=== PATIENT | male | born 1950 | race Caucasian/White ===

== ENCOUNTER 2016-11-05 15:23 | Inpatient (IN) | payer MEDICARE, BC ==
[~2016-11-05 15:23] MED LIST: ACID CONTROL150 MG PO; ASPIRIN81 MG PO; DILTIAZEM HCL120 MG PO; HYDROCHLOROTHIA25 MG PO; KLONOPIN TAB 00.5 MG PO; LEVEMIR100 UNIT/1 SQ; LIPITOR TAB 2020 MG PO; LISINOPRIL40 MG PO; LORCET PLUS 7.1 EACH PO; NEURONTIN 400400 MG PO; NOVOLOG 10100 UNITS1 SQ; PROTONIX 40 MG40 M1 PO; SENOKOT-S TABL1 EACH PO; VITAMIN D1000 UNI1 PO; XARELTO10 MG PO
[2016-11-05 16:46] LABS: HEMOGLOBIN 9.1 gm/dl (14.0-17.5); RED BLOOD COUNT 3.05 M/UL (4.20-5.50); WHITE BLOOD COUNT 6.7 K/UL (4.5-11.0)
[2016-11-06] MEDS ORDERED: LANTUS100 UNIT/1 SC (01:13)
[2016-11-06] MEDS ORDERED: PROVENTIL HFA 61 INH INH (01:14)
[2016-11-06] MEDS ORDERED: PROZAC20 MG PO (01:15)
[2016-11-06] MEDS ORDERED: ZITHROMAX250 MG PO (01:15)
[2016-11-06] MEDS ORDERED: IMDUR ER TAB 6060 MG PO (01:16)
[2016-11-06] MEDS ORDERED: OXYCODONE HCL10 MG PO (01:16)
[2016-11-06] MEDS ORDERED: HYDROCHLOROTHIA25 MG PO (01:16)
[2016-11-06] MEDS ORDERED: FLOMAX 0.4 MG0.4 MG PO (01:17)
[2016-11-06] MEDS ORDERED: INCRUSE ELLI62.5 MCG INH (01:21)
[2016-11-06 06:52] LABS: HEMOGLOBIN 8.4 gm/dl (14.0-17.5); RED BLOOD COUNT 2.87 M/UL (4.20-5.50); WHITE BLOOD COUNT 6.7 K/UL (4.5-11.0)
[2016-11-07 05:10] LABS: HEMOGLOBIN 7.9 gm/dl (14.0-17.5); RED BLOOD COUNT 2.68 M/UL (4.20-5.50)
[2016-11-07 05:13] LABS: WHITE BLOOD COUNT 9.5 K/UL (4.5-11.0)
[2016-11-08 05:42] LABS: HEMOGLOBIN 8.8 gm/dl (14.0-17.5); RED BLOOD COUNT 2.94 M/UL (4.20-5.50); WHITE BLOOD COUNT 10.8 K/UL (4.5-11.0)
[2016-11-09] MEDS ORDERED: CATAPRES 0.1MG0.1 MG PO (16:58)
[2016-11-09] MEDS ORDERED: LEVAQUIN750 MG PO (17:03)
[2016-11-09] MEDS ORDERED: HYDRALAZINE HCL50 MG PO (17:04)
[2016-11-09] MEDS ORDERED: IMDUR ER TAB 6060 MG PO (17:08)
[2016-11-09] MEDS ORDERED: LANTUS SOL100 UNIT/1 SQ (17:12)
[2016-11-09] MEDS ORDERED: NOVOLOG 10100 UNITS1 SQ (17:13)
[2017-03-16] MEDS ORDERED: CATAPRES 0.1MG0.1 MG PO (18:33)
[2017-03-16] MEDS ORDERED: GLUCERNA237 ML PO (18:35)
[2017-03-16] MEDS ORDERED: ARICEPT10 MG PO (18:36)
[2017-03-16] MEDS ORDERED: GLUCERNA/RESOURC1 EA PO (18:51)
[2017-03-16] MEDS ORDERED: LABETALOL HCL300 MG PO (18:53)
[2017-03-16] MEDS ORDERED: MELATONIN5 M2 PO (18:55)
[2017-04-02] MEDS ORDERED: LASIX40 MG PO (10:57)
[2017-04-02] MEDS ORDERED: PROVENTIL HFA 61 INH INH (10:57)
[2017-04-02] MEDS ORDERED: NIFEREX 150 MG150 MG PO (11:00)
[2017-04-02] MEDS ORDERED: COREG 3.125M3.125 MG PO (11:02)
== END 2016-11-09 17:49 | disposition home or self-care (01) | DRG 193 ==
LOC: ER1 15:23 → M/S 19:02 → ZEROF 19:02 → M/S 21:40
PROVIDERS: Emergency Medicine; Family Medicine; ADMIT Internal Medicine
DX: J18.9 Pneumonia, unspecified organism (principal); G93.49 Other encephalopathy; I12.9 Hypertensive chronic kidney disease with stage 1 through stage 4 chronic kidney disease, or unspecified chronic kidney disease; N18.3 Chronic kidney disease, stage 3 (moderate); I25.10 Atherosclerotic heart disease of native coronary artery without angina pectoris; D69.6 Thrombocytopenia, unspecified; J60 Coalworker's pneumoconiosis; E78.5 Hyperlipidemia, unspecified; F17.210 Nicotine dependence, cigarettes, uncomplicated; E86.0 Dehydration; R53.81 Other malaise; I15.0 Renovascular hypertension; M16.4 Bilateral post-traumatic osteoarthritis of hip; R00.1 Bradycardia, unspecified; Z95.5 Presence of coronary angioplasty implant and graft; Z86.73 Personal history of transient ischemic attack (TIA), and cerebral infarction without residual deficits; Z79.82 Long term (current) use of aspirin; Z79.4 Long term (current) use of insulin; Z79.899 Other long term (current) drug therapy
CPT/HCPCS: 36415; 36600; 51701; 70450; 71010; 80048; 80053; 80307; 81001; 82550; 82553; 82803; 82962; 83036; 83874; 84484; 85025; 85027; 87040; 87070; 87205; 93005; 94640; 94664; 96365; 96375; 97116; 97530; 99285; J0360; J1644; J1956; J2405; J2930; J7030

== ENCOUNTER 2016-11-26 17:59 | Emergency (ER) | payer MEDICARE, BC ==
[~2016-11-26 17:59] MED LIST changes: +CATAPRES 0.1MG0.1 MG PO; +FLOMAX 0.4 MG0.4 MG PO; +HYDRALAZINE HCL50 MG PO; +IMDUR ER TAB 6060 MG PO; +INCRUSE ELLI62.5 MCG INH; +LANTUS SOL100 UNIT/1 SQ; +LANTUS100 UNIT/1 SC; +LEVAQUIN750 MG PO; +OXYCODONE HCL10 MG PO; +PROVENTIL HFA 61 INH INH; +PROZAC20 MG PO; +ZITHROMAX250 MG PO
[2016-11-26 22:28] LABS: HEMOGLOBIN 8.7 gm/dl (14.0-17.5); RED BLOOD COUNT 2.92 M/UL (4.20-5.50); WHITE BLOOD COUNT 15.7 K/UL (4.5-11.0)
[2017-03-16] MEDS ORDERED: CATAPRES 0.1MG0.1 MG PO (18:33)
[2017-03-16] MEDS ORDERED: GLUCERNA237 ML PO (18:35)
[2017-03-16] MEDS ORDERED: ARICEPT10 MG PO (18:36)
[2017-03-16] MEDS ORDERED: GLUCERNA/RESOURC1 EA PO (18:51)
[2017-03-16] MEDS ORDERED: LABETALOL HCL300 MG PO (18:53)
[2017-03-16] MEDS ORDERED: MELATONIN5 M2 PO (18:55)
[2017-04-02] MEDS ORDERED: PROVENTIL HFA 61 INH INH (10:57)
[2017-04-02] MEDS ORDERED: LASIX40 MG PO (10:57)
[2017-04-02] MEDS ORDERED: NIFEREX 150 MG150 MG PO (11:00)
[2017-04-02] MEDS ORDERED: COREG 3.125M3.125 MG PO (11:02)
== END 2016-11-27 02:40 | disposition home or self-care (01) ==
LOC: ER1 17:59
PROVIDERS: Emergency Medicine
DX: J18.9 Pneumonia, unspecified organism (principal); I13.0 Hypertensive heart and chronic kidney disease with heart failure and stage 1 through stage 4 chronic kidney disease, or unspecified chronic kidney disease; I50.9 Heart failure, unspecified; N18.9 Chronic kidney disease, unspecified; D64.9 Anemia, unspecified; D72.829 Elevated white blood cell count, unspecified; F17.200 Nicotine dependence, unspecified, uncomplicated; Z95.5 Presence of coronary angioplasty implant and graft; Z79.899 Other long term (current) drug therapy
CPT/HCPCS: 36415; 70450; 71010; 80053; 82272; 82550; 82553; 83735; 83874; 84484; 85025; 87040; 87081; 87880; 93005; 94664; 96365; 96366; 99284; J1956

== ENCOUNTER 2016-12-22 15:22 | Observation (INO) | payer MEDICARE, BC ==
[~2016-12-22] VITALS: Ht 182.9 cm; Wt 72.6 kg
[2016-12-22 15:54] LABS: HEMOGLOBIN 8.3 gm/dl (14.0-17.5); RED BLOOD COUNT 2.82 M/UL (4.20-5.50); WHITE BLOOD COUNT 10.3 K/UL (4.5-11.0)
[2016-12-23 05:07] LABS: HEMOGLOBIN 8.1 gm/dl (14.0-17.5); RED BLOOD COUNT 2.74 M/UL (4.20-5.50); WHITE BLOOD COUNT 9.8 K/UL (4.5-11.0)
[2017-03-16] MEDS ORDERED: CATAPRES 0.1MG0.1 MG PO (18:33)
[2017-03-16] MEDS ORDERED: GLUCERNA237 ML PO (18:35)
[2017-03-16] MEDS ORDERED: ARICEPT10 MG PO (18:36)
[2017-03-16] MEDS ORDERED: GLUCERNA/RESOURC1 EA PO (18:51)
[2017-03-16] MEDS ORDERED: LABETALOL HCL300 MG PO (18:53)
[2017-03-16] MEDS ORDERED: MELATONIN5 M2 PO (18:55)
[2017-04-02] MEDS ORDERED: PROVENTIL HFA 61 INH INH (10:57)
[2017-04-02] MEDS ORDERED: LASIX40 MG PO (10:57)
[2017-04-02] MEDS ORDERED: NIFEREX 150 MG150 MG PO (11:00)
[2017-04-02] MEDS ORDERED: COREG 3.125M3.125 MG PO (11:02)
== END 2016-12-23 14:58 | disposition other institution (70) ==
LOC: ER1 15:22 → MED SURG 4 23:00 → ZEROF 23:00 → MED SURG 4 12-23 01:20
PROVIDERS: Emergency Medicine; ADMIT Internal Medicine
DX: G93.40 Encephalopathy, unspecified (principal); E11.22 Type 2 diabetes mellitus with diabetic chronic kidney disease; E11.65 Type 2 diabetes mellitus with hyperglycemia; I12.9 Hypertensive chronic kidney disease with stage 1 through stage 4 chronic kidney disease, or unspecified chronic kidney disease; N18.3 Chronic kidney disease, stage 3 (moderate); N17.9 Acute kidney failure, unspecified; J60 Coalworker's pneumoconiosis; D50.0 Iron deficiency anemia secondary to blood loss (chronic); E87.6 Hypokalemia; F17.210 Nicotine dependence, cigarettes, uncomplicated; Z86.73 Personal history of transient ischemic attack (TIA), and cerebral infarction without residual deficits; Z79.82 Long term (current) use of aspirin; Z79.899 Other long term (current) drug therapy; Z90.2 Acquired absence of lung [part of]; Z98.890 Other specified postprocedural states
CPT/HCPCS: 36415; 70450; 71010; 72125; 80048; 80053; 80307; 81001; 82140; 82550; 82553; 82803; 82962; 83690; 83874; 83880; 84484; 85025; 85027; 85610; 85730; 87086; 93005; 94640; 96372; 96374; 96376; 99285; G0378; G0480; J1650; J1815; J1817; J2310; J7030

== ENCOUNTER 2017-01-14 18:17 | Inpatient (IN) | payer MEDICARE, BC ==
[~2017-01-14] VITALS: Ht 185.4 cm; Wt 75.8 kg
[2017-01-14 19:42] LABS: HEMOGLOBIN 8.5 gm/dl (14.0-17.5); RED BLOOD COUNT 2.9 M/UL (4.20-5.50); WHITE BLOOD COUNT 10.6 K/UL (4.5-11.0)
[2017-01-15 07:09] LABS: HEMOGLOBIN 8.5 gm/dl (14.0-17.5); RED BLOOD COUNT 2.9 M/UL (4.20-5.50)
[2017-01-15] MEDS ORDERED: COREG 3.125M3.125 MG PO (09:35)
[2017-01-15] MEDS ORDERED: SPIRIVA18 MCG INH (09:36)
[2017-01-16 02:05] LABS: HEMOGLOBIN 7.3 gm/dl (14.0-17.5); WHITE BLOOD COUNT 9.5 K/UL (4.5-11.0)
[2017-01-16 02:06] LABS: RED BLOOD COUNT 2.53 M/UL (4.20-5.50)
[2017-01-16 12:03] LABS: HEMOGLOBIN 7.3 gm/dl (14.0-17.5)
[2017-01-17 05:55] LABS: HEMOGLOBIN 8.6 gm/dl (14.0-17.5)
[2017-01-17 05:57] LABS: RED BLOOD COUNT 2.97 M/UL (4.20-5.50); WHITE BLOOD COUNT 21.2 K/UL (4.5-11.0)
[2017-01-18 05:06] LABS: HEMOGLOBIN 8.5 gm/dl (14.0-17.5); RED BLOOD COUNT 2.92 M/UL (4.20-5.50); WHITE BLOOD COUNT 17.3 K/UL (4.5-11.0)
[2017-01-19 04:40] LABS: HEMOGLOBIN 8.9 gm/dl (14.0-17.5); RED BLOOD COUNT 3.08 M/UL (4.20-5.50); WHITE BLOOD COUNT 16.3 K/UL (4.5-11.0)
[2017-01-20 06:25] LABS: RED BLOOD COUNT 3.06 M/UL (4.20-5.50); WHITE BLOOD COUNT 16.4 K/UL (4.5-11.0)
[2017-01-20 12:28] LABS: URINE CREATININE 91.3 mg/dL
[2017-01-22 06:53] LABS: RED BLOOD COUNT 3.08 M/UL (4.20-5.50); WHITE BLOOD COUNT 19.6 K/UL (4.5-11.0)
[2017-01-23 04:56] LABS: HEMOGLOBIN 9.4 gm/dl (14.0-17.5); RED BLOOD COUNT 3.13 M/UL (4.20-5.50); WHITE BLOOD COUNT 18.6 K/UL (4.5-11.0)
[2017-01-23] MEDS ORDERED: LEVEMIR100 UNIT/1 SQ (21:02)
[2017-01-23] MEDS ORDERED: LASIX40 MG PO (21:03)
[2017-01-23] MEDS ORDERED: CHRONULAC20 GM/30 M PO (21:03)
[2017-01-23] MEDS ORDERED: NOVOLOG 10100 UNITS1 SQ (21:07)
[2017-03-16] MEDS ORDERED: CATAPRES 0.1MG0.1 MG PO (18:33)
[2017-03-16] MEDS ORDERED: GLUCERNA237 ML PO (18:35)
[2017-03-16] MEDS ORDERED: ARICEPT10 MG PO (18:36)
[2017-03-16] MEDS ORDERED: GLUCERNA/RESOURC1 EA PO (18:51)
[2017-03-16] MEDS ORDERED: LABETALOL HCL300 MG PO (18:53)
[2017-03-16] MEDS ORDERED: MELATONIN5 M2 PO (18:55)
[2017-04-02] MEDS ORDERED: LASIX40 MG PO (10:57)
[2017-04-02] MEDS ORDERED: PROVENTIL HFA 61 INH INH (10:57)
[2017-04-02] MEDS ORDERED: NIFEREX 150 MG150 MG PO (11:00)
[2017-04-02] MEDS ORDERED: COREG 3.125M3.125 MG PO (11:02)
== END 2017-01-23 21:47 | disposition home or self-care (01) | DRG 291 ==
LOC: ER1 18:17 → MED SURG 4 01-15 → PROG CARE 01-15 → ZEROF 01-15 → PROG CARE 01-15 14:25 → MED SURG 4 01-18 13:29
PROVIDERS: Emergency Medicine; Internal Medicine; Internal Medicine Infectious Disease; Internal Medicine Nephrology; ADMIT Family Medicine
DX: I13.0 Hypertensive heart and chronic kidney disease with heart failure and stage 1 through stage 4 chronic kidney disease, or unspecified chronic kidney disease (principal); I50.33 Acute on chronic diastolic (congestive) heart failure; J96.21 Acute and chronic respiratory failure with hypoxia; N17.9 Acute kidney failure, unspecified; J44.1 Chronic obstructive pulmonary disease with (acute) exacerbation; S22.42XA Multiple fractures of ribs, left side, initial encounter for closed fracture; J44.0 Chronic obstructive pulmonary disease with (acute) lower respiratory infection; E11.22 Type 2 diabetes mellitus with diabetic chronic kidney disease; N18.3 Chronic kidney disease, stage 3 (moderate); J20.9 Acute bronchitis, unspecified; E83.42 Hypomagnesemia; E11.21 Type 2 diabetes mellitus with diabetic nephropathy; I25.10 Atherosclerotic heart disease of native coronary artery without angina pectoris; Z95.5 Presence of coronary angioplasty implant and graft; D63.8 Anemia in other chronic diseases classified elsewhere; E78.5 Hyperlipidemia, unspecified; R77.8 Other specified abnormalities of plasma proteins; I27.2 Other secondary pulmonary hypertension; I65.29 Occlusion and stenosis of unspecified carotid artery; J60 Coalworker's pneumoconiosis; F17.210 Nicotine dependence, cigarettes, uncomplicated; N40.0 Benign prostatic hyperplasia without lower urinary tract symptoms; K21.9 Gastro-esophageal reflux disease without esophagitis; Z99.3 Dependence on wheelchair; Z74.01 Bed confinement status; Z80.51 Family history of malignant neoplasm of kidney; Z83.3 Family history of diabetes mellitus; Z82.49 Family history of ischemic heart disease and other diseases of the circulatory system; I25.2 Old myocardial infarction; Z79.4 Long term (current) use of insulin; Z79.82 Long term (current) use of aspirin; Z79.51 Long term (current) use of inhaled steroids; Z79.899 Other long term (current) drug therapy; H91.90 Unspecified hearing loss, unspecified ear; Z86.73 Personal history of transient ischemic attack (TIA), and cerebral infarction without residual deficits; Y92.9 Unspecified place or not applicable; X58.XXXA Exposure to other specified factors, initial encounter; Y93.9 Activity, unspecified
CPT/HCPCS: ECHO; 36415; 36600; 70450; 71010; 71101; 80048; 80053; 80074; 80307; 81001; 82270; 82272; 82550; 82553; 82570; 82575; 82607; 82728; 82746; 82803; 82962; 83516; 83540; 83550; 83735; 83874; 83880; 84156; 84439; 84443; 84484; 85014; 85018; 85025; 85027; 86039; 86060; 86160; 86162; 86225; 86334; 86850; 86900; 86901; 86920; 87040; 87086; 93005; 93306; 94640; 94664; 96372; 96374; 96375; 97110; 97116; 99291; J1100; J1650; J1815; J1940; J1956; J2270; J2405; J2550; J2920; J2930; J7030; J7040; P9016

== ENCOUNTER 2017-02-04 14:27 | Observation (INO) | payer MEDICARE, BC ==
[~2017-02-04] VITALS: Ht 182.9 cm; Wt 91.7 kg
[~2017-02-04 14:27] MED LIST changes: +CHRONULAC20 GM/30 M PO; +COREG 3.125M3.125 MG PO; +LASIX40 MG PO; +SPIRIVA18 MCG INH
[2017-02-04 17:59] LABS: HEMOGLOBIN 7.8 gm/dl (14.0-17.5); RED BLOOD COUNT 2.67 M/UL (4.20-5.50); WHITE BLOOD COUNT 10.3 K/UL (4.5-11.0)
--- NOTE | 2017-02-05 01:09 | NUR ---
LAB CALLED TO REPORT TROPONIN OF 0.14, SAME RESULT 2ND SET RESULT REPORTED TO DR. SANDHU NO NEW ORDERS.
--- NOTE | 2017-02-05 05:32 | NUR ---
lab called to report troponin of 0.15 up slighltly form 0.14 no new orders noted
[2017-02-05 07:09] LABS: HEMOGLOBIN 7.4 gm/dl (14.0-17.5); RED BLOOD COUNT 2.53 M/UL (4.20-5.50); WHITE BLOOD COUNT 9.3 K/UL (4.5-11.0)
[2017-02-06 05:51] LABS: HEMOGLOBIN 8.5 gm/dl (14.0-17.5); WHITE BLOOD COUNT 10.1 K/UL (4.5-11.0)
[2017-02-06 06:01] LABS: RED BLOOD COUNT 2.99 M/UL (4.20-5.50)
[2017-03-16] MEDS ORDERED: CATAPRES 0.1MG0.1 MG PO (18:33)
[2017-03-16] MEDS ORDERED: GLUCERNA237 ML PO (18:35)
[2017-03-16] MEDS ORDERED: ARICEPT10 MG PO (18:36)
[2017-03-16] MEDS ORDERED: GLUCERNA/RESOURC1 EA PO (18:51)
[2017-03-16] MEDS ORDERED: LABETALOL HCL300 MG PO (18:53)
[2017-03-16] MEDS ORDERED: MELATONIN5 M2 PO (18:55)
[2017-04-02] MEDS ORDERED: LASIX40 MG PO (10:57)
[2017-04-02] MEDS ORDERED: PROVENTIL HFA 61 INH INH (10:57)
[2017-04-02] MEDS ORDERED: NIFEREX 150 MG150 MG PO (11:00)
[2017-04-02] MEDS ORDERED: COREG 3.125M3.125 MG PO (11:02)
== END 2017-02-06 16:10 | disposition home or self-care (01) ==
LOC: ER1 14:27 → M/S 23:19 → ZEROF 23:19 → M/S 23:48
PROVIDERS: Emergency Medicine; Internal Medicine; ADMIT Internal Medicine
DX: S22.31XA Fracture of one rib, right side, initial encounter for closed fracture (principal); J60 Coalworker's pneumoconiosis; I13.0 Hypertensive heart and chronic kidney disease with heart failure and stage 1 through stage 4 chronic kidney disease, or unspecified chronic kidney disease; E11.22 Type 2 diabetes mellitus with diabetic chronic kidney disease; D63.1 Anemia in chronic kidney disease; N18.4 Chronic kidney disease, stage 4 (severe); I50.33 Acute on chronic diastolic (congestive) heart failure; R79.89 Other specified abnormal findings of blood chemistry; R60.1 Generalized edema; I25.10 Atherosclerotic heart disease of native coronary artery without angina pectoris; J44.9 Chronic obstructive pulmonary disease, unspecified; J90 Pleural effusion, not elsewhere classified; N20.0 Calculus of kidney; M51.36 Other intervertebral disc degeneration, lumbar region; F17.210 Nicotine dependence, cigarettes, uncomplicated; Z79.82 Long term (current) use of aspirin; Z79.899 Other long term (current) drug therapy; Z95.5 Presence of coronary angioplasty implant and graft; Z86.73 Personal history of transient ischemic attack (TIA), and cerebral infarction without residual deficits; Z79.4 Long term (current) use of insulin
CPT/HCPCS: 36415; 36430; 71010; 71250; 72125; 80048; 80053; 81001; 82140; 82550; 82553; 82962; 83874; 83880; 84484; 85025; 85027; 85610; 85730; 86850; 86900; 86901; 86920; 87086; 93005; 94640; 94664; 96374; 96375; 99285; G0378; J1940; J2270; J2405; J7050; P9016

== ENCOUNTER 2017-02-17 18:24 | Inpatient (IN) | payer MEDICARE, BC ==
[~2017-02-17] VITALS: Ht 182.9 cm; Wt 69.9 kg
[2017-02-17 19:26] LABS: HEMOGLOBIN 9.4 gm/dl (14.0-17.5); RED BLOOD COUNT 3.29 M/UL (4.20-5.50); WHITE BLOOD COUNT 15.1 K/UL (4.5-11.0)
[2017-02-17 19:48] LABS: BUN/CREATININE RATIO 12 (0-10)
[2017-02-18 06:34] LABS: HEMOGLOBIN 8.3 gm/dl (14.0-17.5)
[2017-02-18 06:36] LABS: RED BLOOD COUNT 2.92 M/UL (4.20-5.50); WHITE BLOOD COUNT 26.1 K/UL (4.5-11.0)
[2017-02-20 04:14] LABS: HEMOGLOBIN 8.4 gm/dl (14.0-17.5)
[2017-02-20 04:17] LABS: WHITE BLOOD COUNT 16.7 K/UL (4.5-11.0)
--- NOTE | 2017-02-20 18:02 | NUR ---
REPORTED TO DR. GOMES OF PATIENT'S LOW PULSE OX SAT ON ROOM AIR, ACKNOWLEDGED
[2017-02-21] MEDS ORDERED: MEGACE400 MG/10 PO (10:45)
[2017-02-21] MEDS ORDERED: MUCINEX600 MG PO (10:46)
--- NOTE | 2017-02-21 12:16 | NUR ---
VERIFIED PATIENT GOING HOME EARLIER THAN THIS PM AND DR. CHRISTIANO KING PATIENT TO GO HOME.
[2017-03-16] MEDS ORDERED: CATAPRES 0.1MG0.1 MG PO (18:33)
[2017-03-16] MEDS ORDERED: GLUCERNA237 ML PO (18:35)
[2017-03-16] MEDS ORDERED: ARICEPT10 MG PO (18:36)
[2017-03-16] MEDS ORDERED: GLUCERNA/RESOURC1 EA PO (18:51)
[2017-03-16] MEDS ORDERED: LABETALOL HCL300 MG PO (18:53)
[2017-03-16] MEDS ORDERED: MELATONIN5 M2 PO (18:55)
[2017-04-02] MEDS ORDERED: LASIX40 MG PO (10:57)
[2017-04-02] MEDS ORDERED: PROVENTIL HFA 61 INH INH (10:57)
[2017-04-02] MEDS ORDERED: NIFEREX 150 MG150 MG PO (11:00)
[2017-04-02] MEDS ORDERED: COREG 3.125M3.125 MG PO (11:02)
== END 2017-02-21 09:00 | disposition home or self-care (01) | DRG 291 ==
LOC: ER1 18:24 → MED SURG 4 21:50 → ZEROF 21:50 → MED SURG 4 02-18 20:18
PROVIDERS: Internal Medicine; Preventive Medicine Occupational Medicine; ADMIT Internal Medicine
DX: I13.0 Hypertensive heart and chronic kidney disease with heart failure and stage 1 through stage 4 chronic kidney disease, or unspecified chronic kidney disease (principal); J96.01 Acute respiratory failure with hypoxia; I50.33 Acute on chronic diastolic (congestive) heart failure; J44.1 Chronic obstructive pulmonary disease with (acute) exacerbation; N18.4 Chronic kidney disease, stage 4 (severe); J60 Coalworker's pneumoconiosis; E11.649 Type 2 diabetes mellitus with hypoglycemia without coma; E11.65 Type 2 diabetes mellitus with hyperglycemia; I25.10 Atherosclerotic heart disease of native coronary artery without angina pectoris; D63.1 Anemia in chronic kidney disease; E11.22 Type 2 diabetes mellitus with diabetic chronic kidney disease; M51.36 Other intervertebral disc degeneration, lumbar region; F17.200 Nicotine dependence, unspecified, uncomplicated; R74.8 Abnormal levels of other serum enzymes; Z95.5 Presence of coronary angioplasty implant and graft; R63.0 Anorexia; Z68.20 Body mass index [BMI] 20.0-20.9, adult; Z86.73 Personal history of transient ischemic attack (TIA), and cerebral infarction without residual deficits; Z79.4 Long term (current) use of insulin; Z79.818 Long term (current) use of other agents affecting estrogen receptors and estrogen levels; Z99.81 Dependence on supplemental oxygen; Z79.899 Other long term (current) drug therapy; Z90.2 Acquired absence of lung [part of]; Z98.890 Other specified postprocedural states; Z80.51 Family history of malignant neoplasm of kidney
CPT/HCPCS: 36415; 36600; 51702; 70450; 71010; 80048; 80053; 80202; 80307; 81001; 82150; 82550; 82553; 82803; 82962; 83690; 83735; 83874; 83880; 84100; 84484; 85025; 85027; 87040; 87086; 93005; 94640; 94664; 96372; 96374; 96375; 96376; 99285; G0480; J0696; J1610; J1650; J1940; J2280; J2930; J3370; J7030; J7050; J7070